=== PATIENT | male | born 1960 | race Caucasian/White ===

== ENCOUNTER 2018-06-21 17:30 | Emergency (ER) | payer SELFPAY ==
--- NOTE | 2018-06-21 18:19 | RAD REPORT ---
EXAM DESCRIPTION: Ave Single View06/21/2018 6:07 pm CLINICAL HISTORY: Chest pain COMPARISON: 2013 FINDINGS: The lungs appear clear of acute infiltrate. The heart is normal size IMPRESSION: No acute abnormalities displayed
[2018-06-21 18:20] LABS: Absolute Lymphocytes (CBC) 3.2 K/uL (0.7-4.9); Absolute Monocytes 1.1 K/uL (0.1-1.3); Absolute Neutrophil 7.6 K/uL (1.8-8.0); Basophils % 0.9 % (0-1.3); Eosinophils % 3.6 % (0-4.4); Hematocrit 43.9 % (39.6-49.0); Lymphocytes % 26.1 % (15.3-44.8); MCV 89.4 fL (80-100); MPV 8.5 fL (7.6-11.3); Monocytes % 8.7 % (3.3-12.3); RBC Red Blood Cell Count 4.91 M/uL (4.33-5.43)
[2018-06-21 18:24] LABS: Protime INR 1.02
[2018-06-21 18:40] LABS: ALT/SGPT 20 U/L (12-78); AST/SGOT 12 U/L (15-37); Albumin 3.6 g/dL (3.4-5.0); Alkaline Phosphatase 102 U/L (45-117); BUN Blood Urea Nitrogen 23 mg/dL (7-18); Bicarbonate 24 mmol/L (21-32); Bilirubin Direct < 0.1 mg/dL (0-0.2); Bilirubin Total 0.2 mg/dL (0.2-1.0); Glucose Level 101 mg/dL (74-106); Magnesium 2.3 mg/dL (1.8-2.4); NT PRO-BNP 55 pg/mL (<125); Potassium 3.9 mmol/L (3.5-5.1); Protein, Total 7.3 g/dL (6.4-8.2); Sodium Level 140 mmol/L (136-145); Troponin (Emerg Dept Use Only) < 0.02 ng/mL (0.0-0.045)
--- NOTE | 2018-06-21 19:17 | EDPHYS ---
Physician Documentation [facility] Name: Rex Saldivar Age: 58 yrs Sex: Male : 1960 Arrival Date: 06/21/2018 Time: 17:32 Bed 20 Private MD: None, None ED Physician Orlando Vega HPI: 06/21 18:00 This 58 yrs old Male presents to ER via Ambulatory with complaints of Chest pm1 Pain. 18:00 The patient or guardian reports chest pain that is located primarily in the anterior pm1 chest wall, right. Onset: 1 hour prior to arrival. The pain does not radiate. Associated signs and symptoms: Pertinent negatives: abdominal pain, cough, headache, nausea, palpitations, shortness of breath, vomiting. The chest pain is described as aching. Duration: The patient or guardian reports a single episode, that is still ongoing. Modifying factors: the symptoms are aggravated by deep breath, palpation of area, movement of right arm. The patient has experienced a previous episode, many years ago, and the symptoms today are exactly the same, from coughing spell, resulting in muscle strain and spasm. Historical: - Allergies: 17:41 No Known Allergies; aa5 - PMHx: 17:41 Hypertension; aa5 - PSHx: 17:41 Tonsillectomy; Cholecystectomy; aa5 - Immunization history:: Adult Immunizations unknown. - Social history:: Smoking status: Patient uses tobacco products, smokes one pack cigarettes per day. - Ebola Screening: : No symptoms or risks identified at this time. ROS: 18:00 Constitutional: Negative for fever, chills, and weight loss, Eyes: Negative for injury, pm1 pain, redness, and discharge, ENT: Negative for injury, pain, and discharge, Neck: Negative for injury, pain, and swelling. 18:00 Respiratory: Negative for shortness of breath, cough, wheezing, and pleuritic chest pain, Abdomen/GI: Negative for abdominal pain, nausea, vomiting, diarrhea, and constipation. 18:00 : Negative for injury, bleeding, discharge, and swelling, MS/Extremity: Negative for injury and deformity, Skin: Negative for injury, rash, and discoloration, Neuro: Negative for headache, weakness, numbness, tingling, and seizure. 18:00 Cardiovascular: Positive for chest pain, of the anterior aspect of right upper chest. 18:00 Back: Positive for of the right scapular area, Pain. Exam: 18:00 Constitutional: This is a well developed, well nourished patient who is awake, alert, pm1 and in no acute distress. Head/Face: Normocephalic, atraumatic. Eyes: Pupils equal round and reactive to light, extra-ocular motions intact. Lids and lashes normal. Conjunctiva and sclera are non-icteric and not injected. Cornea within normal limits. Periorbital areas with no swelling, redness, or edema. ENT: Nares patent. No nasal discharge, no septal abnormalities noted. Tympanic membranes are normal and external auditory canals are clear. Oropharynx with no redness, swelling, or masses, exudates, or evidence of obstruction, uvula midline. Mucous membranes moist. Neck: Trachea midline, no thyromegaly or masses palpated, and no cervical lymphadenopathy. Supple, full range of motion without nuchal rigidity, or vertebral point tenderness. No Meningismus. 18:00 Cardiovascular: Regular rate and rhythm with a normal S1 and S2. No gallops, murmurs, or rubs. Normal PMI, no JVD. No pulse deficits. Respiratory: Lungs have equal breath sounds bilaterally, clear to auscultation and percussion. No rales, rhonchi or wheezes noted. No increased work of breathing, no retractions or nasal flaring. Abdomen/GI: Soft, non-tender, with normal bowel sounds. No distension or tympany. No guarding or rebound. No evidence of tenderness throughout. 18:00 Skin: Warm, dry with normal turgor. Normal color with no rashes, no lesions, and no evidence of cellulitis. MS/ Extremity: Pulses equal, no cyanosis. Neurovascular intact. Full, normal range of motion. 18:00 Chest/axilla: Inspection: normal, Palpation: tenderness, of the focal point of anterior aspect of right upper chest, that totally reproduces the patient's complaints. 18:00 Back: pain, that is moderate, of the focal point on right scapular area. 18:00 Neuro: Orientation: is normal, Motor: is normal, moves all fours, Gait: is steady, at a normal pace, without difficulty. Vital Signs: 17:42 BP 130 / 96; Pulse 72; Resp 18 S; Temp 98.8(O); Pulse Ox 99% on R/A; Weight 74.84 kg aa5 (R); Height 5 ft. 11 in. (180.34 cm) (R); Pain 7/10; 19:26 BP 124 / 90; Pulse 64; Resp 17 S; Pulse Ox 99% on R/A; jd3 17:42 Body Mass Index 23.01 (74.84 kg, 180.34 cm) aa5 MDM: 18:02 Patient medically screened. sun 19:15 Data reviewed: vital signs. Data interpreted: Pulse oximetry: on room air is 99 %. pm1 Interpretation: normal. Counseling: I had a detailed discussion with the patient and/or guardian regarding: the historical points, exam findings, and any diagnostic results supporting the discharge/admit diagnosis, the need for outpatient follow up, to return to the emergency department if symptoms worsen or persist or if there are any questions or concerns that arise at home. 06/21 17:51 Order name: Basic Metabolic Panel; Complete Time: 19:03 bp 06/21 17:51 Order name: CBC with Diff; Complete Time: 19:03 bp 06/21 17:51 Order name: LFT's; Complete Time: 19:03 bp 06/21 17:51 Order name: Magnesium; Complete Time: 19:03 bp 06/21 17:51 Order name: NT PRO-BNP; Complete Time: 19:03 bp 06/21 17:51 Order name: PT-INR; Complete Time: 19:03 bp 06/21 17:40 Order name: EKG; Complete Time: 17:40 snw 06/21 17:40 Order name: EKG - Nurse/Tech; Complete Time: 17:47 snw 06/21 17:51 Order name: Troponin (emerg Dept Use Only); Complete Time: 19:03 bp 06/21 17:51 Order name: XRAY Chest (1 view); Complete Time: 18:22 bp 06/21 17:51 Order name: Cardiac monitoring; Complete Time: 17:59 bp 06/21 17:51 Order name: IV Saline Lock; Complete Time: 17:59 bp 06/21 17:51 Order name: Labs collected and sent; Complete Time: 17:59 bp 06/21 17:51 Order name: O2 Per Protocol; Complete Time: 17:59 bp 06/21 17:51 Order name: O2 Sat Monitoring; Complete Time: 18:19 bp Administered Medications: 19:25 Drug: TORadol 30 mg Route: IVP; Site: right forearm; jd3 19:58 Follow up: Response: No adverse reaction jd3 19:25 Drug: Flexeril 10 mg Route: PO; jd3 19:58 Follow up: Response: No adverse reaction jd3 Disposition: 06/22 06:23 Co-signature as Attending Physician, Orlando Vega MD I agree with the assessment and sun plan of care. Disposition: 06/21/18 19:17 Discharged to Home. Impression: Strain of muscle and tendon of front wall of thorax, Strain of muscle and tendon of back wall of thorax. - Condition is Stable. - Discharge Instructions: Muscle Strain. - Prescriptions for Naprosyn 500 mg Oral Tablet - take 1 tablet by ORAL route 2 times per day take with food; 30 tablet. Cyclobenzaprine 10 mg Oral Tablet - take 1 tablet by ORAL route every 8 hours As needed; 30 tablet. - Medication Reconciliation Form, Thank You Letter, Antibiotic Education, Prescription Opioid Use form. - Follow up: Emergency Department; When: As needed; Reason: Worsening of condition. Follow up: Private Physician; When: 2 - 3 days; Reason: Recheck today's complaints, Continuance of care, Re-evaluation by your physician. - Problem is new. - Symptoms have improved. Signatures: Dispatcher [employer] Orlando Burgess MD MD cha Therrien, Shelly, RETAIL TEAM LEADER-C RETAIL TEAM LEADER-Csnw Allyn Chin RN RN aa5 Scottie Allen NP INSPECT[employer] pm1 Refugio Redmond RN RN jd3 Stan Cloud RN RN bp Corrections: (The following items were deleted from the chart) 06/21 19:59 19:17 06/21/2018 19:17 Discharged to Home. Impression: Strain of muscle and tendon of jd3 front wall of thorax; Strain of muscle and tendon of back wall of thorax. Condition is Stable. Forms are Medication Reconciliation Form, Thank You Letter, Antibiotic Education, Prescription Opioid Use. Follow up: Emergency Department; When: As needed; Reason: Worsening of condition. Follow up: Private Physician; When: 2 - 3 days; Reason: Recheck today's complaints, Continuance of care, Re-evaluation by your physician. Problem is new. Symptoms have improved. pm1
--- NOTE | 2018-06-21 19:17 | ER ---
Nurse's Notes 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 aa5 Denies any other symptoms. Transition of care: patient was not received from another setting of care. Onset of symptoms was June 21, 2018. Risk Assessment: Do you want to hurt yourself or someone else? Patient reports no desire to harm self or others. Initial Sepsis Screen: Does the patient meet any 2 criteria? No. Patient's initial sepsis screen is negative. Does the patient have a suspected source of infection? No. Patient's initial sepsis screen is negative. Care prior to arrival: None. 17:40 Method Of Arrival: Ambulatory aa5 17:40 Acuity: JOSE 3 aa5 Triage Assessment: 17:48 General: Appears in no apparent distress. comfortable, Behavior is calm, cooperative, bp appropriate for age. Pain: Complains of pain in chest. Cardiovascular: Reports chest pain. Historical: - Allergies: 17:41 No Known Allergies; aa5 - PMHx: 17:41 Hypertension; aa5 - PSHx: 17:41 Tonsillectomy; Cholecystectomy; aa5 - Immunization history:: Adult Immunizations unknown. - Social history:: Smoking status: Patient uses tobacco products, smokes one pack cigarettes per day. - Ebola Screening: : No symptoms or risks identified at this time. Screenin:50 Abuse screen: Denies threats or abuse. Denies injuries from another. Nutritional bp screening: No deficits noted. Tuberculosis screening: No symptoms or risk factors identified. Fall Risk None identified. Assessment: 17:49 General: Appears in no apparent distress. comfortable, Behavior is calm, cooperative, bp appropriate for age. Pain: Complains of pain in chest Pain does not radiate. Pain began 1 hour ago. Neuro: Level of Consciousness is awake, alert, obeys commands, Oriented to person, place, time, situation, Appropriate for age. Cardiovascular: Reports chest pain. Respiratory: Airway is patent Respiratory effort is even, unlabored, Respiratory pattern is regular, symmetrical. GI: No signs and/or symptoms were reported involving the gastrointestinal system. : No signs and/or symptoms were reported regarding the genitourinary system. EENT: No deficits noted. Derm: No deficits noted. Musculoskeletal: Circulation, motion, and sensation intact. Range of motion: intact in all extremities. 19:26 Reassessment: Patient appears in no apparent distress at this time. No changes from jd3 previously documented assessment. Patient and/or family updated on plan of care and expected duration. Pain level reassessed. Patient is alert, oriented x 3, equal unlabored respirations, skin warm/dry/pink. 19:57 Reassessment: Patient appears in no apparent distress at this time. No changes from jd3 previously documented assessment. Patient and/or family updated on plan of care and expected duration. Pain level reassessed. Patient is alert, oriented x 3, equal unlabored respirations, skin warm/dry/pink. even and steady gait upon discharge, reported understanding of discharge instructions. Vital Signs: 17:42 BP 130 / 96; Pulse 72; Resp 18 S; Temp 98.8(O); Pulse Ox 99% on R/A; Weight 74.84 kg aa5 (R); Height 5 ft. 11 in. (180.34 cm) (R); Pain 7/10; 19:26 BP 124 / 90; Pulse 64; Resp 17 S; Pulse Ox 99% on R/A; jd3 17:42 Body Mass Index 23.01 (74.84 kg, 180.34 cm) aa5 ED Course: 17:32 Patient arrived in ED. mr 17:32 None, None is Private Physician. mr 17:41 Triage completed. aa5 17:42 Arm band placed on. aa5 17:45 Stan Cloud, RN is Primary Nurse. bp 17:50 Patient has correct armband on for positive identification. Bed in low position. Call bp light in reach. Side rails up X2. infant room teacher on. Pulse ox on. NIBP on. 17:53 Scottie Allen NP is PHCP. pm1 17:53 Orlando Vega MD is Attending Physician. pm1 17:55 EKG done, by echocardiography radiology technologist. reviewed by Guilherme Darden MD. sm3 17:59 Inserted saline lock: 20 gauge in right forearm, using aseptic technique. Blood bp collected. Patient maintains SpO2 saturation greater than 95% on room air. 18:08 XRAY Chest (1 view) In Process Unspecified. EDMS 19:57 No provider procedures requiring assistance completed. IV discontinued, intact, jd3 bleeding controlled, No redness/swelling at site. Pressure dressing applied. Administered Medications: 19:25 Drug: TORadol 30 mg Route: IVP; Site: right forearm; jd3 19:58 Follow up: Response: No adverse reaction jd3 19:25 Drug: Flexeril 10 mg Route: PO; jd3 19:58 Follow up: Response: No adverse reaction jd3 Outcome: 19:17 Discharge ordered by . pm1 19:57 Discharged to home ambulatory, with family. jd3 19:57 Condition: stable 19:57 Discharge instructions given to patient, family, Instructed on discharge instructions, follow up and referral plans. medication usage, Demonstrated understanding of instructions, follow-up care, medications, Prescriptions given X 2. 19:59 Patient left the ED. jd3 Signatures: Dispatcher [employer] EDWY Joseph Cindi ChinAllyn, RN RN aa5 Scottie Allen, VEENA INDUSTRIAL DESIGN ENGINEER pm1 Refugio Redmond RN RN jd3 Stan Cloud, PEDRO RN Cinthya Irving sm3 Corrections: (The following items were deleted from the chart) 17:42 17:42 BP 130 / 96; Pulse 72bpm; Resp 18bpm; Spontaneous; Pulse Ox 99% RA; Temp 98.8F aa5 Oral; 74.84 kg Reported; Height 5 ft. 11 in. 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 aa5 aa5 19:57 19:57 Discharge instructions given to patient, family, Instructed on discharge jd3 instructions, follow up and referral plans. medication usage, Demonstrated understanding of instructions, follow-up care, medications, Prescriptions given X 1, jd3
[2018-06-21] MEDS ORDERED: CYCLOBENZAPRINE 10 MG TAB ONE (19:19)
[2018-06-21] MEDS ORDERED: KETOROLAC 30 MG/ML INJ ONE (19:19)
[2018-06-21 20:41] VITALS: TEMP 98.8; O2SAT 99
[2018-06-21 20:42] VITALS: BP 124/90
--- NOTE | 2018-06-22 06:51 | EKG ---
Test Date: 2018-06-21 Test Time: 17:48:18 Public Safety Telecommunicator: CLINT MEASUREMENT RESULTS: Intervals: Rate: 72 TN: 148 QRSD: 88 QT: 386 QTc: 422 Perry: P: 47 TN: 148 QRS: 40 T: 31 INTERPRETIVE STATEMENTS: Normal sinus rhythm Normal ECG Compared to ECG 09/12/2013 11:50:14 No significant changes Electronically Signed On 06-22-18 06:49:45 CDT by Torsten Stevens
== END 2018-06-21 19:59 | disposition home or self-care (01) ==
LOC: ER 17:30
DX: S29.011A Strain of muscle and tendon of front wall of thorax, initial encounter (principal); S29.012A Strain of muscle and tendon of back wall of thorax, initial encounter; I10 Essential (primary) hypertension; F17.210 Nicotine dependence, cigarettes, uncomplicated
CPT/HCPCS: 36415; 71045; 80048; 80076; 83735; 83880; 84484; 85025; 85610; 93005; 96374; 99285

== ENCOUNTER 2018-12-10 17:44 | Emergency (ER) | payer SELFPAY ==
[2018-12-10 19:11] LABS: Absolute Lymphocytes (CBC) 3.6 K/uL (0.7-4.9); Absolute Monocytes 1.2 K/uL (0.1-1.3); Absolute Neutrophil 7.9 K/uL (1.8-8.0); Basophils % 0.7 % (0-1.3); Eosinophils % 4.2 % (0-4.4); Hematocrit 45.2 % (39.6-49.0); Lymphocytes % 27.1 % (15.3-44.8); MPV 8.6 fL (7.6-11.3); Monocytes % 9.2 % (3.3-12.3); RBC Red Blood Cell Count 5.03 M/uL (4.33-5.43)
[2018-12-10 19:13] LABS: ALT/SGPT 20 U/L (12-78); AST/SGOT 14 U/L (15-37); Albumin 3.6 g/dL (3.4-5.0); Alkaline Phosphatase 94 U/L (45-117); BUN Blood Urea Nitrogen 15 mg/dL (7-18); Bicarbonate 26 mmol/L (21-32); Bilirubin Direct < 0.1 mg/dL (0-0.2); Bilirubin Total 0.3 mg/dL (0.2-1.0); Glucose Level 105 mg/dL (74-106); Lipase 79 U/L (73-393); Potassium 3.8 mmol/L (3.5-5.1); Protein, Total 6.9 g/dL (6.4-8.2); Sodium Level 141 mmol/L (136-145)
[2018-12-10 19:55] LABS: Urine Blood TRACE (NEG); Urine Glucose NEGATIVE (NEG); Urine Protein NEGATIVE (NEG); Urine pH 5.5 (5.0-7.0)
--- NOTE | 2018-12-10 20:02 | RAD REPORT ---
EXAM DESCRIPTION: CT - Abdomen Pelvis W Contrast - 12/10/2018 7:35 pm CLINICAL HISTORY: Abdominal pain left lower quadrant pain. Urinary frequency COMPARISON: none. TECHNIQUE: Computed axial tomography of the abdomen pelvis was obtained. 100 cc Isovue-300 was admin istered intravenously. Oral contrast was not requested which limits evaluation of bowel. All CT scans are performed using dose optimization technique as appropriate and may include automated exposure control or mA/KV adjustment according to patient size. FINDINGS: Pulmonary fibrosis involves the lower lobes right greater than left The liver, spleen, pancreas, adrenal and kidneys appear unremarkable. There is no evidence of diverticulitis. The appendix is normal. Cholecystectomy IMPRESSION: No acute abnormality is displayed.
--- NOTE | 2018-12-10 20:20 | ER ---
Nurse's Notes [facility] Name: eRx Saldivar Age: 58 yrs Sex: Male : 1960 Arrival Date: 12/10/2018 Time: 17:46 Bed 20 Private MD: None, None Diagnosis: Urinary tract infection, site not specified Presentation: 12/10 18:04 Presenting complaint: Patient states: Urinary frequency for several weeks, reports now sg having the sensation to urinate but not able to empty the bladder, reports having pain in the Left lower quadrant and when urinary symptoms began the smell of the urine smells of burnt plastic. Transition of care: patient was not received from another setting of care. Onset of symptoms was December 10, 2018. Risk Assessment: Do you want to hurt yourself or someone else? Patient reports no desire to harm self or others. Initial Sepsis Screen: Does the patient meet any 2 criteria? No. Patient's initial sepsis screen is negative. Does the patient have a suspected source of infection? Yes: Dysuria/Frequency/Urgency/UTI. Care prior to arrival: None. 18:04 Method Of Arrival: Ambulatory sg 18:04 Acuity: JOSE 3 sg Historical: - Allergies: 18:01 No Known Allergies; sg - PMHx: 18:01 Hypertension; sg - PSHx: 18:01 Tonsillectomy; Cholecystectomy; sg - Immunization history:: Adult Immunizations up to date. - Social history:: Smoking status: Patient/guardian denies using tobacco. Screenin:20 Abuse screen: Denies threats or abuse. Nutritional screening: No deficits noted. em Tuberculosis screening: No symptoms or risk factors identified. Fall Risk None identified. Assessment: 18:20 General: Appears in no apparent distress. comfortable, Behavior is calm, cooperative, em Denies fever. Pain: Complains of pain in left lower quadrant. Neuro: Level of Consciousness is awake, alert, obeys commands, Oriented to person, place, time, situation, Appropriate for age. Cardiovascular: Capillary refill < 3 seconds Patient's skin is warm and dry. Respiratory: Airway is patent Respiratory effort is even, unlabored, Respiratory pattern is regular, symmetrical. GI: Abdomen is flat, Bowel sounds present X 4 quads. Abd is soft X 4 quads Abdomen is tender to palpation in left lower quadrant Reports nausea, Patient currently denies cramping, diarrhea, vomiting. : Urine is clear, Reports burning with urination, urinary frequency, "smells like burnt plastic". Derm: Skin is intact, is healthy with good turgor, Skin is pink, warm \\T\\ dry. Musculoskeletal: Capillary refill < 3 seconds, Range of motion: intact in all extremities. 19:19 Reassessment: Patient appears in no apparent distress at this time. Patient and/or iw family updated on plan of care and expected duration. Pain level reassessed. Patient is alert, oriented x 3, equal unlabored respirations, skin warm/dry/pink. I agree with above assessment by Javed Swanson LVN. 19:47 Reassessment: Patient appears in no apparent distress at this time. Patient and/or ed1 family updated on plan of care and expected duration. Pain level reassessed. Patient is alert, oriented x 3, equal unlabored respirations, skin warm/dry/pink. Patient states feeling better. Patient states symptoms have improved. 20:29 Reassessment: Patient appears in no apparent distress at this time. No changes from ed1 previously documented assessment. Patient and/or family updated on plan of care and expected duration. Pain level reassessed. Patient is alert, oriented x 3, equal unlabored respirations, skin warm/dry/pink. Vital Signs: 18:01 BP 122 / 79; Pulse 98; Resp 19; Temp 98.2; Pulse Ox 100% on R/A; Pain 6/10; sg 19:47 BP 133 / 90; Pulse 71; Resp 18; Pulse Ox 100% on R/A; Pain 6/10; ed1 ED Course: 17:46 Patient arrived in ED. mr 17:47 None, None is Private Physician. mr 18:01 Arm band placed on. sg 18:06 Triage completed. 18:06 Venkatesh Guerra PA is [facility] 18:06 Duc Zhou MD is Attending Physician. [facility] 18:06 Javed Swanson LVN is Primary Nurse. em 18:20 Patient has correct armband on for positive identification. Placed in gown. Bed in low em position. Call light in reach. Adult w/ patient. Pulse ox on. NIBP on. 18:20 Urine collected: clean catch specimen, clear. em 18:35 Initial lab(s) drawn, by ma, sent to lab. Inserted saline lock: 20 gauge in right em antecubital area, using aseptic technique. Blood collected. 19:07 Primary Nurse role handed off by Javed Swanson LVN ed1 19:07 Lou Saul, RN is Primary Nurse. ed1 19:33 Patient moved to MD via wheelchair. nj 19:35 CT Abd/Pelvis - W/Contrast In Process Unspecified. EDMS 19:37 CT completed. Patient tolerated procedure well. Patient moved back from MD. nj 20:19 Jorge Juan MD is Referral Physician. jmm 20:29 No provider procedures requiring assistance completed. IV discontinued, intact, ed1 bleeding controlled, No redness/swelling at site. Pressure dressing applied. Administered Medications: No medications were administered Outcome: 20:19 Discharge ordered by . jmm 20:29 Discharged to home ambulatory, with family. ed1 20:29 Condition: good 20:29 Discharge instructions given to patient, Instructed on discharge instructions, follow up and referral plans. medication usage, Demonstrated understanding of instructions, follow-up care, medications, Prescriptions given X 2. 20:37 Patient left the ED. ed1 Signatures: Dispatcher [employer] EDMS Missael Dalton, Venkatesh Rudd RN, PA PA [facility] Cindi Ruiz mr Javed Swanson LVN LVN em Kimberly Boudreaux, PEDRO VASQUEZ Lou Saul RN RN ed1 Diaz Jolly nv
--- NOTE | 2018-12-10 20:20 | EDPHYS ---
Physician Documentation [facility] Name: Rex Saldivar Age: 58 yrs Sex: Male : 1960 Arrival Date: 12/10/2018 Time: 17:46 Bed 20 Private MD: None, None ED Physician Duc Zhou HPI: 12/10 18:23 This 58 yrs old Male presents to ER via Ambulatory with complaints of jmm Abdominal Pain. 18:23 The patient presents with abdominal pain in the left lower quadrant. Onset: The jmm symptoms/episode began/occurred gradually, 1 day(s) ago. This is a 58 year old male with a history of htn that presents to the ED with complaints of left flank pain beginning yesterday, radiating to his llq of his abdomen. Patient states over the past two months have frequent episodes of dysuria, increased frequency. Denies fever. Patient states having intermittent episodes of vomiting. Denies diarrhea. . Historical: - Allergies: 18:01 No Known Allergies; sg - PMHx: 18:01 Hypertension; sg - PSHx: 18:01 Tonsillectomy; Cholecystectomy; sg - Immunization history:: Adult Immunizations up to date. - Social history:: Smoking status: Patient/guardian denies using tobacco. ROS: 18:23 Constitutional: Negative for fever, chills, and weight loss, Cardiovascular: Negative jmm for chest pain, palpitations, and edema, Respiratory: Negative for shortness of breath, cough, wheezing, and pleuritic chest pain. 18:23 Abdomen/GI: Positive for abdominal pain, nausea and vomiting. 18:23 Back: Positive for flank pain. 18:23 All other systems are negative. Exam: 18:23 Constitutional: This is a well developed, well nourished patient who is awake, alert, jmm and in no acute distress. Head/Face: atraumatic. Eyes: EOMI, no conjunctival erythema appreciated ENT: Moist Mucus Membranes Neck: Trachea midline, Supple Chest/axilla: Normal chest wall appearance and motion. Cardiovascular: Regular rate and rhythm. No edema appreciated Respiratory: Normal respirations, no respiratory distress appreciated 18:23 Abdomen/GI: Inspection: abdomen appears normal, Bowel sounds: normal, Palpation: soft, mild abdominal tenderness, in the left lower quadrant. 18:23 Back: CVA tenderness, that is moderate, is noted on the left. 18:23 Musculoskeletal/extremity: ROM: intact in all extremities. 18:23 Skin: Appearance: Color: normal in color. 18:23 Neuro: Orientation: is normal, Mentation: is normal, Memory: is normal. 18:23 Psych: Behavior/mood is pleasant, cooperative. Vital Signs: 18:01 BP 122 / 79; Pulse 98; Resp 19; Temp 98.2; Pulse Ox 100% on R/A; Pain 6/10; sg 19:47 BP 133 / 90; Pulse 71; Resp 18; Pulse Ox 100% on R/A; Pain 6/10; ed1 MDM: 18:23 Patient medically screened. [facility] 20:18 Data reviewed: vital signs, nurses notes. Counseling: I had a detailed discussion with katie the patient and/or guardian regarding: the historical points, exam findings, and any diagnostic results supporting the discharge/admit diagnosis, lab results, radiology results, the need for outpatient follow up, to return to the emergency department if symptoms worsen or persist or if there are any questions or concerns that arise at home. ED course: Patient is alert and non toxic in appearance in the ED. Patient is advised to follow up with urology for further evaluation. patient is otherwise given strict return precautions. Patient understood and agrees with the plan of care. . 12/10 18:21 Order name: Urine Culture ct 12/10 18:21 Order name: Urine Dipstick--Ancillary (enter results); Complete Time: 20:02 ct 12/10 18:27 Order name: Basic Metabolic Panel; Complete Time: 19:23 [facility] 12/10 18:27 Order name: CBC with Diff; Complete Time: 20:02 [facility] 12/10 18:27 Order name: Creatinine for Radiology; Complete Time: 19:23 [facility] 12/10 18:27 Order name: Hepatic Function; Complete Time: 19:23 [facility] 12/10 18:27 Order name: Lipase; Complete Time: 19:23 [facility] 12/10 18:27 Order name: IV Saline Lock; Complete Time: 18:40 [facility] 12/10 18:27 Order name: Labs collected and sent; Complete Time: 18:40 [facility] 12/10 18:27 Order name: CT Abd/Pelvis - W/Contrast; Complete Time: 20:03 [facility] Administered Medications: No medications were administered Disposition: 12/10/18 20:19 Discharged to Home. Impression: Urinary tract infection, site not specified. - Condition is Stable. - Discharge Instructions: Urinary Tract Infection, Adult. - Prescriptions for Cipro 500 mg Oral Tablet - take 1 tablet by ORAL route every 12 hours for 14 days; 24 tablet. Flomax 0.4 mg Oral Capsule, Sust. Release 24 hr - take 1 capsule by ORAL route once daily 1/2 hour following the same meal each day; 30 capsule. - Medication Reconciliation Form, Thank You Letter, Antibiotic Education, Prescription Opioid Use form. - Follow up: Jorge Juan MD; When: 2 - 3 days; Reason: Recheck today's complaints, Continuance of care, Re-evaluation by your physician. Addendum: 12/13/2018 08:32 Co-signature as Attending Physician, Duc Zhou MD I agree with the assessment and k dr plan of care. Signatures: Dispatcher [employer] EDMS Missael Dalton, RN RN Duc Zhou MD MD kdr Mickail, Joel, PA PA Javed Santa, DIRECTOR OF INFECTION CONTROL DIRECTOR OF INFECTION CONTROL Lou Simpson, RN RN ed1 Corrections: (The following items were deleted from the chart) 12/10 20:37 20:19 12/10/2018 20:19 Discharged to Home. Impression: Urinary tract infection, site ed1 not specified. Condition is Stable. Forms are Medication Reconciliation Form, Thank You Letter, Antibiotic Education, Prescription Opioid Use. Follow up: Jorge Juan; When: 2 - 3 days; Reason: Recheck today's complaints, Continuance of care, Re-evaluation by your physician. deidra
[2018-12-10 20:43] VITALS: TEMP 98.2; O2SAT 100
[2018-12-10 20:44] VITALS: BP 133/90
== END 2018-12-10 20:37 | disposition home or self-care (01) ==
LOC: ER 17:44
DX: N39.0 Urinary tract infection, site not specified (principal); I10 Essential (primary) hypertension
CPT/HCPCS: 36415; 74177; 80048; 80076; 81003; 83690; 85025; 87077; 87086; 87088; 87186; 99284; Q9967

== ENCOUNTER 2022-09-25 17:08 | Emergency (ER) | payer SELFPAY ==
--- OUTSIDE RECORDS SUMMARY | 2022-09-25 17:11 | XMS REPORT | Continuity of Care Document ---
:1960 Author Organization [facility] t Address [facility] Adriano Downs [address] [place] [id number] Care Team Providers Name Role Phone FRANCESCA DAVIS Primary Care Physician Unavailable YADIRA MEYERS Attending Clinician Unavailable FRANCESCA DAVIS Attending Clinician Unavailable Ese Kellogg RN Attending Clinician Unavailable Only, Web Test Attending Clinician Unavailable Kobi Russell DO Attending Clinician KOBI RUSSELL Attending Clinician Unavailable Zulema Ramsey A Attending Clinician Yadira Meyers MD Attending Clinician ZULEMA GARRETT Attending Clinician Unavailable Dionisio Ramirez MD Attending Clinician Nora Brown S Attending Clinician Nurse, Neftali [facility] Attending Clinician Unavailable EbNewton Raymundo Attending Clinician 2, [facility] Attending Clinician Unavailable Francesca Vee Attending Clinician Doctor Unassigned, [place] Attending Clinician Unavailable WATERSTannerS Attending Clinician Unavailable SARAH MAX Attending Clinician Unavailable CAPO SILVERMAN Attending Clinician Unavailable PHILIP PRUITT Attending Clinician Unavailable ARNOLDO RENDON Attending Clinician Unavailable YADIRA MEYERS Admitting Clinician Unavailable SHIV Admitting Clinician Unavailable Payers Payer Name Policy Type Policy Number Effective Date Expiration Date S [facility] [place] - [id number] 2020 00:00:00 OUT [place] [id number] 2020 00:00:00 [place] Problems Condition Condition Condition Status Onset Resolution Last Treating Co mments Source Name Details Category Date Date Treatment Clinician Date Screening Screening Disease Active Overview: Univers for for 05-30 Formattin ity of colorectal colorectal 00:00: g of this [place] cancer cancer 00 note Medical might be Branch different from the original. Added automatic ally from request for surgery [id number] Leucocytos Leucocytos Disease Active 2014-08 U nivers is is 09-15 ity of 00:00: [place] 00 Medical Branch Lymphadeno Lymphadeno Disease Active 2014-08 U nivers eleni eleni 09-15 ity of 00:00: [place] 00 Medical Branch Low HDL Low HDL Disease Active 2014-08 Univers (under 40) (under 40) 09-15 it y of 00:00: [place] 00 [facility] Branch Joint pain Joint pain Disease Active 2014-08 U nivers in the in the 09-15 [place] of shoulder[place]c [place]c [place] lavicle 00 Medical region, region, Branch left left Joint pain Joint pain Disease Active 2014-08 U nivers 09-15 ity of 00:00: [place] 00 [facility] Family Family Disease Active 2014-08 Univers history of history of 09-15 [place] of psoriasis [place] father in father 00 [facility] Branch Fatigue Fatigue Disease Active 2014-08 Univers 09-15 ity of 00:00: [place] 00 Medical Branch Allergies, Adverse Reactions, Alerts Allergy Allergy Status Severity Reaction(s) Onset Inactive Treating Comm ents Source Name Type Date Date Clinician Tramadol Propensi Active Nausea 2014-08 Univer s ty to and/or 2-10 ity of adverse Vomiting 00:00: [place] reaction 00 [facility] Branch TRAMADOL DRUG Active N/V 2014-08 Univers INGREDI 2-10 ity of 00:00: [place] 00 Medical [place] Social History Social Habit Start Date Stop Date Quantity Comments Source History of Cigarette Smoker Universi ty of tobacco use [facility] Exposure to Not sure University SARS-CoV-2 [facility] (event) Branch Alcohol intake 2021-08-02 2021-08-02 0 /d University of 00:00:00 00:00:00 [place] [facility] Tobacco use and 2021-04-16 2021-04-16 Never used Universit y of exposure 00:00:00 00:00:00 [facility] Sex Ass[birth year] At [birth year] Universit y of 00:00:00 00:00:00 [facility] Smoking Status Start Date Stop Date Source Current every day smoker 2021-04-16 00:00:00 Uni versity of [facility] Medications Ordered Filled Start Stop Current Ordering Indication Dosage Frequency Signature Comments Components Source Medication Medication Date Date Medication? Clinician (SIG) Name Name cephalexin 2020-08 Yes Take by [facility] ers (KEFLEX 2-03 mouth. ity of ORAL) 13:29: [address] Branch cephalexin 2020-08 Yes Take by [facility] ers (KEFLEX 2-03 mouth. ity of ORAL) 13:29: [address] Branch cephalexin Yes Take by [facility] ers (KEFLEX 8-31 mouth. ity of ORAL) 12:47: [address] cephalexin Yes Take by [facility] ers (KEFLEX 8-31 mouth. ity of ORAL) 12:47: [address] meclizine Yes [id number] 25mg Take 1 U nivers 25 mg 8-31 tablet by ity of tablet 00:00: [facility] 00 every 6 Medical (six) Branch hours. meclizine Yes [id number] 25mg Take 1 U nivers 25 mg 8-31 tablet by ity of tablet 00:00: [facility] 00 every 6 Medical (six) Branch hours. meclizine Yes [id number] 25mg Take 1 U nivers 25 mg 8-31 tablet by ity of tablet 00:00: [place] [id number] every 6 Medical (six) Branch hours. meclizine Yes [id number] 25mg Take 1 U nivers 25 mg 8-31 tablet by ity of tablet 00:00: [facility] 00 every 6 Medical (six) Branch hours. buPROPion 2020- No [id number] 150mg Take 150 Univers HCL, 8-27 11-26 mg by ity of smoking 00:00: 05:59 mouth 2 [place] deter, 00 :00 (two) Medical (ZYBAN) 150 times Branch mg Tb12 daily for 90 days. Zyban 150mg Po daily for 3 days and then bid. Start 1 week prior to smoking cessation and continue for 7-12 weeks. buPROPion 2020- No [id number] 150mg Take 150 Univers HCL, 8-27 11-26 mg by ity of smoking 00:00: 05:59 mouth 2 [place] deter, 00 :00 (two) Medical (ZYBAN) 150 times Branch mg Tb12 daily for 90 days. Zyban 150mg Po daily for 3 days and then bid. Start 1 week prior to smoking cessation and continue for 7-12 weeks. metoprolol Yes Univers tartrate 25 8-20 ity of mg tablet 00:00: [place] [facility] metoprolol Yes Univers tartrate 25 8-20 ity of mg tablet 00:00: [address] metoprolol Yes Univers tartrate 25 8-20 ity of mg tablet 00:00: [address] metoprolol Yes Univers tartrate 25 8-20 ity of mg tablet 00:00: [address] Immunizations Ordered Filled Immunization Date Status Comments [facility] e Immunization Name Name [facility] 2021-04-26 Completed University of 00:00:00 [facility] Pneumococcal 2021-04-26 Completed [place] Polysaccharide, 00:00:00 [facility] ical PPSV23 (PNEUMOVAX) Branch [facility] 2021-04-26 Completed University 00:00:00 [facility] Pneumococcal 2021-04-26 Completed [place] f Polysaccharide, 00:00:00 [place] Med ical PPSV23 (PNEUMOVAX) Branch [facility] 2021-04-26 Completed University of 00:00:00 [facility] Pneumococcal 2021-04-26 Completed University o f Polysaccharide, 00:00:00 [facility] ical PPSV23 (PNEUMOVAX) Branch [facility] 2021-04-26 Completed University of 00:00:00 [facility] Pneumococcal 2021-04-26 Completed [place] Polysaccharide, 00:00:00 [facility] ical PPSV23 (PNEUMOVAX) [place] SARS-COV-2 COVID-19 2020-12-08 [facility] VACCINE 00:00:00 [facility] [place] [facility] SARS-COV-2 COVID-19 2020-12-08 Completed Unive rsity of PFIZER VACCINE 00:00:00 [facility] [place] [facility] SARS-COV-2 COVID-19 2020-12-08 Completed Unive rsity of PFIZER VACCINE 00:00:00 [facility] [place] [facility] SARS-COV-2 COVID-19 2020-12-08 Completed Unive rsity of PFIZER VACCINE 00:00:00 [facility] [place] [facility] SARS-COV-2 COVID-19 2020-11-17 Completed Unive rsity of PFIZER VACCINE 00:00:00 [facility] [place] [facility] SARS-COV-2 COVID-19 2020-11-17 Completed Unive rsity of PFIZER VACCINE 00:00:00 [facility] [place] [facility] SARS-COV-2 COVID-19 2020-11-17 Completed Unive rsity of PFIZER VACCINE 00:00:00 [facility] [place] [facility] SARS-COV-2 COVID-19 2020-11-17 Completed Unive rsity of PFIZER VACCINE 00:00:00 [facility] [place] [facility] Influenza Virus 2015-07-28 Completed Universit y of Vaccine Quad IM 00:00:00 [place] [facility] ical Multi-dose 6+ MO Branch Influenza Virus 2015-07-28 Completed Universit y of Vaccine Quad IM 00:00:00 [place] [facility] ical Multi-dose 6+ MO Branch Influenza Virus 2015-07-28 Completed Universit y of Vaccine Quad IM 00:00:00 [place] Med ical Multi-dose 6+ MO Branch Influenza Virus 2015-07-28 Completed Universit y of Vaccine Quad IM 00:00:00 [place] ical Multi-dose 6+ MO Branch Vital Signs Vital Name Observation Time Observation Value Comments Source Systolic blood 2021-05-27 13:08:00 121 mm[Hg] Univer sity of pressure [facility] Diastolic blood 2021-05-27 13:08:00 83 mm[Hg] Unive rsity of pressure [facility] Heart rate 2021-05-27 13:08:00 78 /min [facility] Body temperature 2021-05-27 13:08:00 36.39 Gloria [facility] Res[facility] 2021-05-27 13:08:00 16 /min [facility] Body height 2021-05-27 13:08:00 177.8 cm [facility] Body weight 2021-05-27 13:08:00 70.126 kg [facility] BMI 2021-05-27 13:08:00 22.18 kg/m2 [facility] Oxygen saturation in 2021-05-27 13:08:00 99 /min University Arterial blood by [facility] Pulse oximetry Branch Procedures This patient has no known procedures. Encounters Start End Encounter Admission Attending Care Care Encounter Source Date/Time Date/Time Type Type Clinicians Facility Department ID 2021-07-22 Outpatient Madhuri MEYERS [facility] GEM [id number] Univers 15:43:16 YADIRA alcala [facility] 2021-07-01 Emergency [facility] [id number] Univers 19:21:25 fredrick [facility] 2021-10-25 2021-10-25 Outpatient Madhuri DAVIS [facility] [id number] Univers 08:30:00 08:30:00 [facility] 2021-09-04 2021-09-04 Letter DIONISIO Kellogg [id number] Univers 00:00:00 00:00:00 (Out) Ese GARCIA [id number] it y of HOSPITAL [id number] [place] [phone] [facility] 019 Branch 2021-09-02 2021-09-02 Laboratory Only, Web Test [facility] 1.2.840. [id number] Univers 17:30:00 17:45:00 Only Kobi Russell [facility] [id number]. 10 ity of SPECIAL[id number] - [phone] [facility] 314 Branch 2021-09-02 2021-09-02 Outpatient Madhuri RUSSELL [facility] [id number] Univers 17:30:00 17:30:00 KOBI alcala [facility] 2021-08-02 2021-08-02 Outpatient Madhuri MEYERS [facility] [id number] Univers 08:00:00 08:00:00 YADIRA alcala [facility] 2021-05-30 2021-05-30 Prep For Gerry [facility] [id number] Univers 00:00:00 00:00:00 Surgery Zulema Hahn [id number] it[place] eufemia [id number] [phone] [facility] [address] [facility] 2021-05-27 2021-05-27 [facility] [id number] Univers 08:00:56 08:57:21 Visit Yadira Hahn [id number] i ty [id number] [phone] [facility] 188 [facility] 2021-05-27 2021-05-27 [facility] [id number] Univers 08:30:00 08:30:00 YADIRA alcala [facility] 2021-05-20 2021-05-20 [facility] [id number] Univers 11:00:00 11:00:00 ZULEMA [facility] 2021-05-09 2021-05-09 Telephone [facility] [id number] 2013 [facility] [place] 00:00:00 00:00:00 Dionisio Hahn [id number] i ty of [id number] [phone] [address] 2021-05-09 2021-05-09 Telephone [facility] [id number] Univers 00:00:00 00:00:00 Dionisio Hahn [id number] i ty of [id number] [phone] [address] 2021-05-08 2021-05-08 Outpatient R RYAN [facility] [id number] Univers 00:00:00 00:00:00 FRANCESCA vu [facility] 2021-04-30 2021-04-30 Emergency [facility] [id number] Univers 12:11:00 16:34:00 Nora Hahn [id number] i ty [id number] [place] [phone] [facility] 084 [place] 2021-04-30 2021-04-30 Nurse Nurse, Neftali Patel [facility] [id number] Univers 11:20:30 11:40:30 Visit Newton Ritter [id number] ity of [place] [id number] [place] Ministerio?Blea [phone] Sc [facility]ron [facility]ohn[facility] 370 [place] [facility] 2021-04-30 2021-04-30 Veterans Service Representative 2, Adc Lab [facility] [id number] Univers 10:39:15 10:54:15 Visit Francesca Davis [id number] ity [id number] [facility] [phone] [facility] [address] [facility] 2021-04-30 2021-04-30 [facility] [id number] Univers 10:30:00 10:30:00 FRANCESCA alcala [facility] 2021-04-30 2021-04-30 Orders Doctor DIONISIO [id number] Univers 00:00:00 00:00:00 Only Unassigned, JOSE [id number] ity of [place] [facility] [id number] [place] [phone] [facility] 009 [place] 2021-04-26 2021-04-26 Office Ryan [facility] [id number] Univers 10:07:02 11:00:49 [facility] [id number] it y of [place] [id number] [place] Ministerio?Blea [phone] Sc sherron carpio 044 [facility] Office [facility] 2021-04-26 2021-04-26 Outpatient R RYAN [facility] [id number] Univers 10:00:00 10:00:00 FRANCESCA ity [facility] 2021-04-26 2021-04-26 Outpatient R GERRY [facility] [id number] Univers 00:00:00 00:00:00 ZULEMA ity of [facility] 2021-04-24 2021-04-24 Telephone Gramm, [facility] [id number] [facility] [place] 00:00:00 00:00:00 Zulema Hahn [id number] ity [id number] [phone] Sc dicwv nal 204 [facility] 2021-04-24 2021-04-24 Telephone Gerry, [facility] [id number] [facility] 00:00:00 00:00:00 Zulema Hahn [id number] ity [id number] [phone] Sc dical nal 204 [facility] 2021-04-23 2021-04-23 Veterans Service Representative 2, [facility] [id number] Univers 08:44:45 08:59:45 Visit Zulema Garrett [place] [id number] ity [place] [id number] [phone] Sc dical nal 353 [facility] 2021-04-23 2021-04-23 Veterans Service Representative 2, [facility] [id number] Univers 08:44:45 08:59:45 Visit Zulema Garrett [place] [id number] ity of [place] [id number] [phone] Sc dical nal 353 [facility] 2021-04-23 2021-04-23 Office Gramm, [facility] [id number] Univers 08:09:35 08:42:48 Visit Zulema Bettencourt [place] [id number] ity of [place] [id number] [phone] Sc dical nal 188 [facility] 2021-04-23 2021-04-23 Office Gramm, [facility] [id number] Univers 08:09:35 08:42:48 Visit Zulema Hahn 350.1.13.10 [place] [id number] Vinnie rhodes Professio [phone] Sc dical [place] [address] Branch [facility] 2021-04-23 2021-04-23 Outpatient R GERRY [facility] [id number] Univers 08:00:00 08:00:00 ZULEMA vu [facility] 2021-04-17 2021-04-17 Outpatient WATERS_S [facility] 2020 [place] 03:29:00 03:29:00 [id number] [facility] 2021-04-16 2021-04-16 Outpatient R WINTER [facility] [id number] Univers 17:20:00 17:20:00 SARAH [facility] 2021-01-30 2021-01-30 Outpatient R HERRERA [facility] [id number] Univers 14:00:00 14:00:00 CAPO [facility] 2021-01-15 2021-01-15 Outpatient R [facility] [id number] Univers 11:00:00 11:00:00 [facility] 2020-12-12 2020-12-12 [facility] [id number] Univers 10:00:00 10:00:00 PHILIP hopkinsvu o f [facility] 2020-12-08 2020-12-08 [facility] [id number] Univers 11:50:00 12:23:31 ARNOLDO [facility] 2020-11-17 2020-11-17 [facility] [id number] Univers 18:50:00 18:50:00 ARNOLDO [facility] 2020-10-23 2020-10-23 [facility] [id number] Univers 10:20:00 10:20:00 [facility] Results This patient has no known results.
[2022-09-25 18:04] LABS: Absolute Lymphocytes (CBC) 4.3 K/uL (0.7-4.9); Hematocrit 41.6 % (39.6-49.0); Lymphocytes % 42.1 % (15.3-44.8); MCV 84.8 fL (80-100); RBC Red Blood Cell Count 4.91 M/uL (4.33-5.43)
[2022-09-25 18:10] LABS: Protime INR 1.28
[2022-09-25 18:27] LABS: Albumin 3.2 g/dL (3.4-5.0); Bilirubin Direct 0.3 mg/dL (0-0.2); Bilirubin Total 0.7 mg/dL (0.2-1.0); Magnesium 2.4 mg/dL (1.6-2.4); Potassium 3.3 mmol/L (3.5-5.1); Protein, Total 6.9 g/dL (6.4-8.2); Troponin High Sensitivity 4.8 pg/mL (<58.9)
--- NOTE | 2022-09-25 18:49 | RAD REPORT ---
EXAM DESCRIPTION: CT - Head Brain Wo Cont - 09/25/2022 6:29 pm CLINICAL HISTORY: Dizziness COMPARISON: 2011 TECHNIQUE: Computed axial tomography of the head was obtained. IV contrast was not requested. All CT scans are performed using dose optimization technique as appropriate and may include automated exposure control or mA/KV adjustment according to patient size. FINDINGS: An intracranial bleed is not seen . The ventricles are normal in caliber. No significant hypodense areas within the brain visualized No extra-axial fluid collection is noted. Fluid within the sinuses/ mastoids is not seen. IMPRESSION: No acute intracranial abnormality is seen. If patient's symptoms persist MRI of the bra in would be recommended.
--- NOTE | 2022-09-25 18:51 | RAD REPORT ---
EXAM DESCRIPTION: Ave Single View09/25/2022 6:00 pm CLINICAL HISTORY: Palpitations COMPARISON: 2017 FINDINGS: The lungs appear clear of acute infiltrate. The heart is normal size IMPRESSION: No acute abnormalities displayed
[2022-09-25 19:28] LABS: Urine Blood Trace-intact (Negative); Urine Glucose Negative (Negative); Urine Protein Negative (Negative); Urine Specific Gravity 1.015 (1.005-1.030)
[2022-09-25 19:44] LABS: Urine Bacteria None Seen /HPF (<20); Urine Mucus Slight /HPF (None Seen); Urine RBC <5 /HPF (None Seen)
[2022-09-25] MEDS ORDERED: POTASSIUM 25 MEQ EFFERV TAB ONE (19:50)
[2022-09-25] MEDS ORDERED: MECLIZINE HCL 12.5 MG TAB ONE (19:51)
[2022-09-25 20:11] LABS: SARS-CoV-2 Antigen Rapid Res Negative (Negative)
--- NOTE | 2022-09-25 20:22 | ER ---
Nurse's Notes [facility] Name: Rex Saldivar Jr Age: 62 yrs Sex: Male : 1960 Arrival Date: 09/25/2022 Time: 17:09 Bed 12 Private MD: Diagnosis: Dizziness and giddiness;Muscle weakness (generalized);Hypokalemia;Abnormal results of liver function studies Presentation: 09/25 17:15 Chief complaint: Patient states: fatigue, decreased appetite, dizziness that began 1 aa5 week ago. Pt denies pain, denies cough/congestion, denies vomiting/diarrhea. Coronavirus screen: fatigue. Ebola Screen: Patient denies travel to an Ebola-affected area in the 21 days before illness onset. Initial Sepsis Screen: Does the patient meet any 2 criteria? No. Patient's initial sepsis screen is negative. Does the patient have a suspected source of infection? No. Patient's initial sepsis screen is negative. Risk Assessment: Do you want to hurt yourself or someone else? Patient reports no desire to harm self or others. Onset of symptoms was August 2022. 17:15 Method Of Arrival: Ambulatory aa5 17:15 Acuity: JOSE 3 aa5 Triage Assessment: 18:44 General: Appears in no apparent distress. Behavior is calm, cooperative. General: ap3 Reports fatigue for. Pain: Denies pain. Neuro: Level of Consciousness is awake, alert, obeys commands, Oriented to person, place, time, Reports dizziness, weakness. Cardiovascular: Patient's skin is warm and dry. Respiratory: Airway is patent Respiratory effort is even, unlabored, Respiratory pattern is regular, symmetrical. Historical: - Allergies: 17:16 No Known Allergies; aa5 - PMHx: 17:16 Hypertension; aa5 - Immunization history:: Adult Immunizations unknown. - Social history:: Smoking status: Patient reports the use of cigarette tobacco products, smokes one pack cigarettes per day. Screenin:43 [facility] ED Fall Risk Assessment (Adult) History of falling in the last 3 months, ap3 including since admission No falls in past 3 months (0 pts). Abuse screen: Denies threats or abuse. Nutritional screening: patient reports decreased appetite . Tuberculosis screening: No symptoms or risk factors identified. Assessment: 19:21 General: Appears in no apparent distress. Behavior is calm, cooperative. Neuro: Level kd3 of Consciousness is awake, alert, obeys commands, Oriented to person, place, time, situation. Cardiovascular: Patient's skin is warm and dry. Respiratory: Airway is patent Trachea midline Respiratory effort is even, unlabored, Respiratory pattern is regular, symmetrical. Vital Signs: 17:15 BP 145 / 94; Pulse 72; Resp 16 S; Temp 97.1(TE); Pulse Ox 99% on R/A; Weight 74.84 kg aa5 (R); Height 5 ft. 10 in. (177.80 cm) (R); 19:20 BP 136 / 85 Supine; Pulse 61; Resp 16; Pulse Ox 98% on R/A; kd3 19:20 BP 135 / 89 Sitting; Pulse 67; Resp 18; Pulse Ox 100% on R/A; kd3 19:20 BP 117 / 94 Standing; Pulse 76; Resp 19; Temp 97.9(O); Pulse Ox 100% on R/A; kd3 20:43 BP 117 / 78; Pulse 71; Resp 16; Pulse Ox 100% on R/A; kd3 17:15 Body Mass Index 23.67 (74.84 kg, 177.80 cm) aa5 ED Course: 17:09 Patient arrived in ED. am2 17:11 Orlando Sandoval PA is PHCP. cp 17:11 Lei Grant MD is Attending Physician. cp 17:15 Arm band placed on. aa5 17:16 Triage completed. aa5 17:26 Alicia Ramirez, RN is Primary Nurse. ap3 17:58 Initial lab(s) drawn, by me, sent to lab. Inserted saline lock: 20 gauge in right aa5 antecubital area, using aseptic technique. Blood collected. 18:02 XRAY Chest (1 view) In Process Unspecified. EDMS 18:30 CT Head Brain wo Cont In Process Unspecified. EDMS 18:44 Patient has correct armband on for positive identification. Bed in low position. Call ap3 light in reach. Pulse ox on. NIBP on. Door closed. Noise minimized. 19:28 Urine Microscopic Only Sent. kd3 19:56 SARS RAPID Sent. kd3 20:47 No provider procedures requiring assistance completed. IV discontinued, intact, kd3 bleeding controlled, No redness/swelling at site. Pressure dressing applied. Administered Medications: 19:55 Drug: Meclizine 25 mg Route: PO; kd3 20:49 Follow up: Response: No adverse reaction kd3 19:55 Drug: Potassium Effervescent Tablet 50 mEq Route: PO; kd3 20:49 Follow up: Response: No adverse reaction kd3 Medication: 18:44 VIS not applicable for this client. ap3 Outcome: 20:22 Discharge ordered by MD. dillon 20:48 Discharged to home ambulatory, with family. kd3 20:48 Condition: stable 20:48 Discharge instructions given to patient, family, Instructed on discharge instructions, follow up and referral plans. Demonstrated understanding of instructions, follow-up care. 20:49 Patient left the ED. kd3 Signatures: Dispatcher [employer] EDMS Allyn Chin RN RN aa5 Orlando Sandoval PA PA Alicia Curry am2 Alicia Ramirez RN RN ap3 Jackie Ash RN RN kd3
--- NOTE | 2022-09-25 20:23 | EDPHYS ---
Physician Documentation [facility] Name: Rex Saldivar Jr Age: 62 yrs Sex: Male : 1960 Arrival Date: 09/25/2022 Time: 17:09 Bed 12 Private MD: ED Physician Lei Grant HPI: 09/25 17:33 This 62 yrs old Male presents to ER via Ambulatory with complaints of General Weakness, cp Dizziness, Doesn't Feel Right. 17:33 The patient presents with generalized weakness, lightheadedness. cp 17:33 Onset: The symptoms/episode began/occurred 1 week(s) ago. cp 17:33 Associated signs and symptoms: Pertinent positives: palpitations, intermittent cp vomiting, decreased appetite, Pertinent negatives: abdominal pain, blurred vision, chest pain, confusion, focal weakness, near-syncope, syncope. Severity of symptoms: in the emergency department the symptoms are unchanged despite home interventions. Patient's baseline: Neuro: alert and fully oriented, Motor: no deficits, Ambulation: walks without assistance, Speech: normal. Historical: - Allergies: 17:16 No Known Allergies; aa5 - PMHx: 17:16 Hypertension; aa5 - Immunization history:: Adult Immunizations unknown. - Social history:: Smoking status: Patient reports the use of cigarette tobacco products, smokes one pack cigarettes per day. ROS: 17:40 Constitutional: Positive for poor PO intake, Negative for fever. cp 17:40 Cardiovascular: Positive for palpitations, Negative for chest pain, edema. cp 17:40 Respiratory: Negative for cough, shortness of breath, wheezing. 17:40 Abdomen/GI: Positive for nausea and vomiting, Negative for abdominal pain, diarrhea, cp constipation. 17:40 Eyes: Negative for injury, pain, redness, and discharge. cp 17:40 ENT: Negative for drainage from ear(s), ear pain, sore throat, difficulty swallowing, difficulty handling secretions. 17:40 Neuro: Positive for dizziness, weakness, Negative for altered mental status, headache, numbness, syncope. 17:40 All other systems are negative. Exam: 17:45 Constitutional: The patient appears in no acute distress, alert, awake, cp non-diaphoretic, non-toxic, well developed, well nourished. 17:45 Head/Face: Normocephalic, atraumatic. cp 17:45 Eyes: Periorbital structures: appear normal, Pupils: equal, round, and reactive to light and accomodation, Extraocular movements: intact throughout, Conjunctiva: normal, no exudate, no injection, Sclera: no appreciated abnormality, Lids and lashes: appear normal, bilaterally. 17:45 ENT: External ear(s): are unremarkable, Ear canal(s): are normal, clear, TM's: dullness, bilaterally, Nose: is normal, Mouth: Lips: moist, Oral mucosa: pink and intact, moist, Posterior pharynx: is normal, airway is patent, no erythema, no exudate. 17:45 Neck: ROM/movement: is normal, is supple, without pain, no range of motions limitations, Lymph nodes: no appreciated lymphadenopathy. 17:45 Chest/axilla: Inspection: normal. 17:45 Cardiovascular: Rate: normal, Rhythm: regular, Heart sounds: murmur, not appreciated, Edema: is not appreciated, JVD: is not appreciated. 17:45 Respiratory: the patient does not display signs of respiratory distress, Respirations: normal, no use of accessory muscles, no retractions, labored breathing, is not present, Breath sounds: are clear throughout, no decreased breath sounds, no stridor, no wheezing. 17:45 Abdomen/GI: Inspection: abdomen appears normal, Bowel sounds: active, all quadrants, Palpation: abdomen is soft and non-tender, in all quadrants. 17:45 Neuro: Orientation: to person, place \T\ time. Mentation: is normal, Motor: moves all fours, strength is normal, Sensation: is normal, Gait: is steady, at a normal pace, without difficulty. 19:07 ECG was reviewed by the Attending Physician. cp Vital Signs: 17:15 BP 145 / 94; Pulse 72; Resp 16 S; Temp 97.1(TE); Pulse Ox 99% on R/A; Weight 74.84 kg aa5 (R); Height 5 ft. 10 in. (177.80 cm) (R); 19:20 BP 136 / 85 Supine; Pulse 61; Resp 16; Pulse Ox 98% on R/A; kd3 19:20 BP 135 / 89 Sitting; Pulse 67; Resp 18; Pulse Ox 100% on R/A; kd3 19:20 BP 117 / 94 Standing; Pulse 76; Resp 19; Temp 97.9(O); Pulse Ox 100% on R/A; kd3 20:43 BP 117 / 78; Pulse 71; Resp 16; Pulse Ox 100% on R/A; kd3 17:15 Body Mass Index 23.67 (74.84 kg, 177.80 cm) aa5 MDM: 17:24 Patient medically screened. cp 18:00 Differential diagnosis: cardiac arrhythmia, CVA, GI bleed, hypovolemia, idiopathic cp dizziness, viral infection, COVID-19, influenza, sepsis. 20:21 Data reviewed: vital signs, nurses notes, lab test result(s), EKG, radiologic studies, cp CT scan, plain films. 20:21 Consideration of Admission/Observation Escalation of care including cp admission/observation considered. I considered the following discharge prescriptions or medication management in the emergency department Medications were administered in the Emergency Department. See MAR. Independent interpretation of the following test(s) in the Emergency Department EKG: See my EKG interpretation above X-Ray: My interpretation is chest negative for infiltrates. Test considered but Not performed: CT: chest, abdomen/pelvis. Care significantly affected by the following chronic conditions: Hypertension. Counseling: I had a detailed discussion with the patient and/or guardian regarding: the historical points, exam findings, and any diagnostic results supporting the discharge/admit diagnosis, lab results, radiology results, to return to the emergency department if symptoms worsen or persist or if there are any questions or concerns that arise at home. Response to treatment: the patient's symptoms have markedly improved after treatment, and as a result, I will discharge patient. 09/25 17:29 Order name: Basic Metabolic Panel; Complete Time: 18:52 09/25 19:22 Interpretation: Normal except: K 3.3; GLUC 148; CA 8.3. 09/25 17:29 Order name: CBC with Diff; Complete Time: 18:52 09/25 18:52 Interpretation: Normal except: YUMIKO% 37.8; MN% 14.3; EOSINOPHIL % 4.7; MNA 1.5. 09/25 17:29 Order name: LFT's; Complete Time: 18:52 09/25 18:53 Interpretation: Normal except: AST 50; ALT 70; ALK 311; BILID 0.3; ALB 3.2; GLOB 3.7; cp A/G 0.9. 09/25 17:29 Order name: Magnesium; Complete Time: 18:52 cp 09/25 17:29 Order name: NT PRO-BNP; Complete Time: 18:52 cp 09/25 17:29 Order name: PT-INR; Complete Time: 18:52 cp 09/25 19:22 Interpretation: Abnormal: PT 14.1. cp 09/25 17:29 Order name: Troponin HS; Complete Time: 18:52 cp 09/25 17:29 Order name: XRAY Chest (1 view); Complete Time: 18:52 cp 09/25 19:22 Interpretation: Report review. cp 09/25 17:29 Order name: Urine Microscopic Only; Complete Time: 20:11 cp 09/25 17:51 Order name: CT Head Brain wo Cont; Complete Time: 18:52 cp 09/25 19:24 Order name: SARS RAPID; Complete Time: 20:11 cp 09/25 19:28 Order name: Urine Dipstick-Ancillary; Complete Time: 20:11 EDMS 09/25 20:11 Interpretation: Normal except: UBLD Trace-intact. cp 09/25 17:29 Order name: EKG; Complete Time: 17:30 cp 09/25 17:29 Order name: Cardiac monitoring; Complete Time: 18:00 cp 09/25 17:29 Order name: EKG - Nurse/Tech; Complete Time: 19:04 cp 09/25 17:29 Order name: IV Saline Lock; Complete Time: 18:00 cp 09/25 17:29 Order name: Labs collected and sent; Complete Time: 18:00 cp 09/25 17:29 Order name: O2 Per Protocol; Complete Time: 18:00 cp 09/25 17:29 Order name: O2 Sat Monitoring; Complete Time: 18:00 cp 09/25 17:29 Order name: Urine Dipstick-Ancillary (obtain specimen); Complete Time: 19:28 cp 09/25 17:49 Order name: Orthostatics; Complete Time: 19:20 cp 09/25 18:54 Order name: NPO; Complete Time: 19:20 cp EC:07 Rate is 61 beats/min. Rhythm is regular. FL interval is normal. QRS interval is normal. cp QT interval is normal. T waves are Inverted in lead aVR. Interpreted by me. Reviewed by me. Administered Medications: 19:55 Drug: Meclizine 25 mg Route: PO; kd3 20:49 Follow up: Response: No adverse reaction kd3 19:55 Drug: Potassium Effervescent Tablet 50 mEq Route: PO; kd3 20:49 Follow up: Response: No adverse reaction kd3 Disposition Summary: 09/25/22 20:22 Discharge Ordered Location: Home cp Problem: new cp Symptoms: have improved cp Condition: Stable cp Diagnosis - Dizziness and giddiness cp - Muscle weakness (generalized) cp - Hypokalemia cp - Abnormal results of liver function studies cp Followup: cp - With: Private Physician - When: 2 - 3 days - Reason: Recheck today's complaints Discharge Instructions: - Discharge Summary Sheet cp - Potassium Content of Foods cp - Dizziness cp - Weakness cp Forms: - Medication Reconciliation Form cp - Thank You Letter cp - Antibiotic Education cp - Prescription Opioid Use cp - Work release form cp Prescriptions: - Meclizine 25 mg Oral Tablet - take 1 tablet by ORAL route every 8 hours As needed; 30 tablet; Refills: 0, cp Product Selection Permitted - Zofran 4 mg Oral Tablet - take 1 tablet by ORAL route every 12 hours As needed; 20 tablet; Refills: 0, cp Product Selection Permitted Signatures: Dispatcher [employer] Allyn Dave, RN RN aa5 Orlando Sandoval PA PA cp Jackie Ash, RN RN kd3 Corrections: (The following items were deleted from the chart) 19:22 18:52 Normal except: K 3.3; GLUC 148. cp cp 20:20 18:54 Abdomen Limited+[id number] ordered. EDMS EDMS
[2022-09-25 22:26] VITALS: TEMP 97.9; O2SAT 100
[2022-09-25 22:36] VITALS: BP 117/78
--- NOTE | 2022-09-26 13:16 | EKG ---
Test Date: 2022-09-25 Test Time: 19:02:50 [employer] Designer: ALP MEASUREMENT RESULTS: Intervals: Rate: 61 TX: 146 QRSD: 96 QT: 458 QTc: 461 [place]: P: 65 TX: 146 QRS: 77 T: 69 INTERPRETIVE STATEMENTS: Normal sinus rhythm Normal ECG Compared to ECG 06/21/2018 17:48:18 No significant changes Electronically Signed On 09-26-22 13:14:43 [employer] by Steve Barriga
== END 2022-09-25 20:49 | disposition home or self-care (01) ==
LOC: ER 17:08
DX: E87.6 Hypokalemia (principal); M62.81 Muscle weakness (generalized); R94.5 Abnormal results of liver function studies; Z20.822 Contact with and (suspected) exposure to COVID-19; I10 Essential (primary) hypertension; F17.210 Nicotine dependence, cigarettes, uncomplicated
CPT/HCPCS: 36415; 70450; 71045; 80048; 80076; 81003; 81015; 83735; 83880; 84484; 85025; 85610; 87811; 93005; 99284; J8597